=== PATIENT | female | born 1950 | race Caucasian/White ===

== ENCOUNTER → 2018-02-02 | Outpatient (CLI) | payer MEDICARE ==
[2018-02-02 09:07] LABS: ABSOLUTE EOSINOPHILS # (AUTO) 0.2 10^3/uL (0.0-0.6); ABSOLUTE LYMPHOCYTES (AUTO) 1.5 10^3/uL (0.5-4.7); ABSOLUTE MONOCYTES (AUTO) 0.4 10^3/uL (0.1-1.4); ABSOLUTE NEUT (AUTO) 2.1 10^3/uL (1.7-8.2); BASOPHILS % (AUTO) 1.1 % (0-2); EOSINOPHILS % (AUTO) 5.2 % (0-6); HEMATOCRIT 40.1 % (36.0-47.0); HEMOGLOBIN 13.6 g/dL (12.0-15.5); LYMPHOCYTES % (AUTO) 35.2 % (13-45); MEAN CORPUSCULAR HEMOGLOBIN 32.2 pg (27.0-33.4); MEAN CORPUSCULAR HGB CONC 33.9 g/dL (32.0-36.0); MEAN CORPUSCULAR VOLUME 95 fl (80-97); PLATELET COUNT 255 10^3/uL (150-450); RED BLOOD COUNT 4.21 10^6/uL (3.72-5.28); RED CELL DISTRIBUTION WIDTH 13.2 % (11.5-14.0); SEGMENTED NEUTROPHILS % (AUTO) 49.5 % (42-78); TOTAL CELLS COUNTED % (AUTO) 100 %; WHITE BLOOD COUNT 4.3 10^3/uL (4.0-10.5)
[2018-02-02 09:30] LABS: ALANINE AMINOTRANSFERASE 31 U/L (9-52); ALBUMIN 4.2 g/dL (3.5-5.0); ALKALINE PHOSPHATASE 63 U/L (38-126); ANION GAP 10 (5-19); ASPARTATE AMINO TRANSFERASE 29 U/L (14-36); BILIRUBIN,DIRECT 0.3 mg/dL (0.0-0.4); BILIRUBIN,TOTAL 0.4 mg/dL (0.2-1.3); BLOOD UREA NITROGEN 18 mg/dL (7-20); CALCIUM 9.7 mg/dL (8.4-10.2); CARBON DIOXIDE 30 mmol/L (22-30); CHLORIDE 107 mmol/L (98-107); CHOLESTEROL 193.16 mg/dL (0-200); GLUCOSE 110 mg/dL (75-110); POTASSIUM 5.1 mmol/L (3.6-5.0); SODIUM 146.9 mmol/L (137-145); TOTAL PROTEIN 7.4 g/dL (6.3-8.2); TRIGLYCERIDES 125 mg/dL (<150)
[2018-02-02 09:46] LABS: DIRECT LDL 97 mg/dL (<100)
== END ==
LOC: OD 07:20
PROVIDERS: ATTEND Physician Assistant
DX: E78.5 Hyperlipidemia, unspecified (principal); R73.01 Impaired fasting glucose; I10 Essential (primary) hypertension; E87.5 Hyperkalemia
CPT/HCPCS: 36415; 80053; 80061; 83036; 85025

== ENCOUNTER 2018-10-04 18:09 | Inpatient (IN) | payer MEDICARE ==
--- NOTE | 2018-10-04 18:25 | ER Document Report ---
ED Medical Screen (RME) - General Stated Complaint: ABDOMINAL PAIN Time Seen by Provider: 10/04/18 18:25 Notes: Patient presents emergency department complaints of severe abdominal pain. Patient reports pain started after lunch. She reports she ate broccoli and grilled pork chops. Reports pain and vomiting started approximately half an hour after that. She reports other people ate the same meal and they are not sick. She reports she thought maybe she needed to have a bowel movement because she has a history of constipation. She tried 2 glycerin suppositories and had small amount results. I have greeted and performed a rapid initial assessment of this patient. A comprehensive ED assessment and evaluation of the patient, analysis of test results and completion of the medical decision making process will be conducted by additional ED providers. TRAVEL OUTSIDE OF THE [place] IN LAST 30 DAYS: No Doctor's Discharge - Discharge Referrals: CRYS AVILES PA [Primary Care Provider] - Follow up as needed
[2018-10-04] MEDS ORDERED: KETOROLAC TROMETHAMINE INJ/PF 30 MG/1 ML SDV IV ONE (18:31)
[2018-10-04] MEDS ORDERED: PANTOPRAZOLE SODIUM 40 MG VIAL IV ONE (18:51)
[2018-10-04 19:26] LABS: BLOOD UREA NITROGEN 14 mg/dL (7-20); CALCIUM 8.8 mg/dL (8.4-10.2); CARBON DIOXIDE 24 mmol/L (22-30); CHLORIDE 111 mmol/L (98-107); GLUCOSE 123 mg/dL (75-110); POTASSIUM 4.3 mmol/L (3.6-5.0); SODIUM 143.4 mmol/L (137-145)
[2018-10-04 19:27] LABS: ALANINE AMINOTRANSFERASE 52 U/L (9-52); ALKALINE PHOSPHATASE 94 U/L (38-126); ANION GAP 8 (5-19); ASPARTATE AMINO TRANSFERASE 107 U/L (14-36); BILIRUBIN,DIRECT 0.4 mg/dL (0.0-0.4); BILIRUBIN,TOTAL 0.7 mg/dL (0.2-1.3); TOTAL PROTEIN 6.8 g/dL (6.3-8.2)
[2018-10-04 19:45] LABS: ABSOLUTE LYMPHOCYTES (AUTO) 0.8 10^3/uL (0.5-4.7); ABSOLUTE MONOCYTES (AUTO) 0.6 10^3/uL (0.1-1.4); ABSOLUTE NEUT (AUTO) 8.6 10^3/uL (1.7-8.2); BASOPHILS % (AUTO) 0.2 % (0-2); EOSINOPHILS % (AUTO) 0.3 % (0-6); HEMATOCRIT 40.8 % (36.0-47.0); HEMOGLOBIN 13.8 g/dL (12.0-15.5); MEAN CORPUSCULAR HEMOGLOBIN 32.4 pg (27.0-33.4); MEAN CORPUSCULAR HGB CONC 33.9 g/dL (32.0-36.0); MEAN CORPUSCULAR VOLUME 95 fl (80-97); PLATELET COUNT 250 10^3/uL (150-450); RED BLOOD COUNT 4.28 10^6/uL (3.72-5.28); RED CELL DISTRIBUTION WIDTH 13.1 % (11.5-14.0); SEGMENTED NEUTROPHILS % (AUTO) 85.5 % (42-78); TOTAL CELLS COUNTED % (AUTO) 100 %; WHITE BLOOD COUNT 10.1 10^3/uL (4.0-10.5)
[2018-10-04 19:47] LABS: LIPASE 17704.5 U/L (23-300)
--- NOTE | 2018-10-04 19:54 | ER Document Report ---
ED General - General Mode of Arrival: Ambulatory Information source: Patient TRAVEL OUTSIDE OF THE [place] IN LAST 30 DAYS: No <NATA COONEY - Last Filed: 10/04/18 23:37> <CRYS OLSON - Last Filed: 10/05/18 01:41> - General Chief Complaint: Abdominal Pain Stated Complaint: ABDOMINAL PAIN Time Seen by Provider: 10/04/18 18:25 Notes: Patient is a 68 year old female presenting to the emergency department complaining of abdominal pain, nausea and vomiting onset around 1500 today. Patient states the pain is located diffusely and describes it as intermittent and painful. Patient states she has not had similar pain. She also complains of right shoulder pain onset today. Patient denies diarrhea, recent surgeries, fev ers, dysuria, or back pain. (NATA COONEY) - Related Data Allergies/Adverse Reactions: No Known Allergies Allergy (Unverified 10/04/18 19:11) Past Medical History - General Information source: Patient - Social History Smoking Status: Never Smoker Chew tobacco use (# tins/day): No Frequency of alcohol use: Occasional Drug Abuse: None Patient has suicidal ideation: No Patient has homicidal ideation: No Past Surgical History: Reports: Hx Lumpectomy <NATA COONEY - Last Filed: 10/04/18 23:37> - Social History Family History: Reviewed & Not Pertinent <CRYS OLSON - Last Filed: 10/05/18 01:41> Review of Systems - Review of Systems Constitutional: No symptoms reported EENT: No symptoms reported Cardiovascular: No symptoms reported Respiratory: No symptoms reported Gastrointestinal: See HPI, Abdominal pain, Nausea, Vomiting Genitourinary: No symptoms reported Female Genitourinary: No symptoms reported Skin: No symptoms reported Hematologic/Lymphatic: No symptoms reported Neurological/Psychological: No symptoms reported -: Yes All other systems reviewed and negative <NATA COONEY - Last Filed: 10/04/18 23:37> Physical Exam <NATA COONEY - Last Filed: 10/04/18 23:37> - Vital signs Vitals: Temp Pulse Resp BP Pulse Ox 98.0 F 78 14 132/72 H 95 10/04/18 19:55 10/04/18 19:55 10/04/18 19:55 10/04/18 19:55 10/04/18 19:55 - Notes Notes: GENERAL: Alert, interacts well. No acute distress. HEAD: Normocephalic, atraumatic. EYES: Pupils equal, round, and reactive to light. Extraocular movements intact. ENT: Oral mucosa dry, tongue midline. NECK: Full range of motion. Supple. Trachea midline. LUNGS: Appears short of breath. Clear to auscultation bilaterally, no wheezes, rales, or rhonchi. No respiratory distress. HEART: Regular rate and rhythm. No murmurs, gallops, or rubs. ABDOMEN: Soft, epigastric and periumblical tenderness to palpation. Non- distended. Bowel sounds present in all 4 quadrants. EXTREMITIES: Moves all 4 extremities spontaneously. NEUROLOGICAL: Alert and oriented x3. Normal speech. PSYCH: Normal affect, normal mood. SKIN: Warm, dry, normal turgor. No rashes or lesions noted. (NATA COONEY) Course - Laboratory Result Diagrams: 10/04/18 19:30 10/04/18 19:00 <NATA COONEY - Last Filed: 10/04/18 23:37> - Laboratory Result Diagrams: 10/04/18 19:30 10/04/18 19:00 - Diagnostic Test Radiology reviewed: Reports reviewed <CRYS OLSON - Last Filed: 10/05/18 01:41> - Re-evaluation Re-evalutation: 10/04/18 20:09 Patient rechecked. Has been updated with results. 10/04/18 21:07 Patient rechecked. Informed patient of results and discussed plans for admission. Patient understands and is agreeable. (NATA COONYE) Patient is a 68-year-old female who comes in with abdominal pain. Lipase is 17,000. Pancreatitis on CT. Patient denies drinking alcohol heavily. No evidence for gallstones. Discussed with the hospitalist service. Patient will be fluid resuscitated, given pain and nausea medication, and kept n.p.o. Will be admitted. Stable at the time of admission. Patient and family understand and agree with plan. (CRYS OLSON) - Vital Signs Vital signs: Temp Pulse Resp BP Pulse Ox 98.3 F 87 22 H 134/68 H 92 10/05/18 00:19 10/05/18 00:19 10/05/18 00:19 10/05/18 00:19 10/05/18 00:19 - Laboratory Laboratory results interpreted by me: 10/04/18 10/04/18 10/04/18 18:40 19:00 19:30 Seg Neutrophils % 85.5 H Lymphocytes % 8.0 L Absolute Neutrophils 8.6 H Chloride 111 H Glucose 123 H AST 107 H Lipase 15332.5 H Urine Ketones TRACE H Urine Blood SMALL H Discharge <NATA COONEY - Last Filed: 10/04/18 23:37> - Discharge Admitting Provider: [facility] Admitted: Medical Floor <CRYS OLSON - Last Filed: 10/05/18 01:41> - Discharge Clinical Impression: Pancreatitis Qualifiers: Chronicity: acute Pancreatitis type: unspecified pancreatitis type Acute pancreatitis complication: no infection or necrosis Qualified Code(s): K85.90 - Acute pancreatitis without necrosis or infection, unspecified Condition: Stable Disposition: ADMITTED INPATIENT Scribe Attestation: 10/05/18 01:41 I personally performed the services described in the documentation, reviewed and edited the documentation which was dictated to the scribe in my presence, and it accurately records my words and actions. (CRYS OLSON) Scribe Documentation - Scribe Written by Scribe:: Enid Avendano, 10/04/2017 23:38 acting as scribe for :: Gianna <NATA COONEY - Last Filed: 10/04/18 23:37>
[2018-10-04] MEDS ORDERED: FENTANYL CITRATE INJ/PF 100 MCG/2 ML AMPUL IV ONE ×2 (20:10→20:56)
[2018-10-04] MEDS ORDERED: ONDANSETRON HCL INJ/PF 4 MG/2 ML SDV IV ONE (20:10)
[2018-10-04 20:24] LABS: APPEARANCE,URINE CLEAR; BILIRUBIN,URINE NEGATIVE (NEGATIVE); COLOR,URINE YELLOW; GLUCOSE, URINE NEGATIVE (NEGATIVE); KETONES,URINE TRACE mg/dL (NEGATIVE); LEUKOCYTE ESTERASE,URINE NEGATIVE (NEGATIVE); NITRITE,URINE NEGATIVE (NEGATIVE); PROTEIN,URINE NEGATIVE (NEGATIVE); URINE SPECIFIC GRAVITY 1.016; UROBILINOGEN,URINE NEGATIVE mg/dL (<2.0)
--- NOTE | 2018-10-04 20:39 | RADIOLOGY REPORT (SQ) ---
EXAM DESCRIPTION: CT ABD/PELVIS WITH IV ONLY COMPLETED DATE/TIME: 10/04/2018 8:27 pm REASON FOR STUDY: Evaluate for pancreatitis COMPARISON: None. TECHNIQUE: CT scan of the abdomen and pelvis performed using helical scanning technique with dynamic intravenous contrast injection. No oral contrast. Images reviewed with lung, soft tissue, and bone windows. Reconstructed coronal and sagittal MPR images reviewed. Delayed images for evaluation of the urinary system also acquired. All images stored on PACS. All CT scanners at this facility use dose modulation, iterative reconstruction, and/or weight based d osing when appropriate to reduce radiation dose to as low as reasonably achievable (ALARA). [facility]: Dose Right [facility]: CareDose [facility]: Dose Right [facility]: Teradose 4D [facility]: GlucoVista CONTRAST TYPE AND DOSE: contrast/concentration: Isovue 350.00 mg/ml; Total Contrast Delivered: 88.0 ml; Total Saline Delivered: 53.0 ml RENAL FUNCTION: BUN 14 creatinine 0.63 RADIATION DOSE: CT Rad equipment meets quality standard of care and radiation dose reduction techniq ues were employed. CTDIvol: 11.4 - 14.6 mGy. DLP: 1379 mGy-cm.. LIMITATIONS: None. FINDINGS: LOWER CHEST: No significant findings. No nodules or infiltrates. LIVER: Normal size. No masses. No dilated ducts. SPLEEN: Normal size. No focal lesions. PANCREAS: Peripancreatic edema. A small amount of peripancreatic fluid. Fluid is seen along the ant erior renal fascia on the left extending to the left colic gutter. GALLBLADDER: No identified stones by CT criteria. No inflammatory changes to suggest cholecystitis. ADRENAL GLANDS: No significant masses or asymmetry. RIGHT KIDNEY AND URETER: No solid masses. No significant calcifications. No hydronephrosis or hyd roureter. LEFT KIDNEY AND URETER: No solid masses. No significant calcifications. No hydronephrosis or hydr oureter. AORTA AND VESSELS: No aneurysm. No dissection. Renal arteries, SMA, celiac without stenosis. RETROPERITONEUM: No retroperitoneal adenopathy, hemorrhage or masses. BOWEL AND PERITONEAL CAVITY: No masses or inflammatory changes. No free fluid or peritoneal masses. APPENDIX: Not identified. PELVIS: No mass. No free fluid. Normal bladder. ABDOMINAL WALL: No masses. No hernias. BONES: No significant or acute findings. OTHER: No other significant finding. IMPRESSION: Acute pancreatitis. Peripancreatic fluid as described. TECHNICAL DOCUMENTATION: JOB ID: [id number] Quality ID # [id number]: Final reports with documentation of one or more dose reduction techniques (e.g., Au tomated exposure control, adjustment of the mA and/or kV according to patient size, use of iterative reconstruction technique) 2010 [employer]- All Rights Reserved Reading location - IP/workstation name: [email or web address]
[2018-10-04] MEDS ORDERED: NORMAL SALINE 1000 ML 1,000 ML IV ONE (20:57)
[2018-10-04] MEDS ORDERED: ONDANSETRON HCL INJ/PF 4 MG/2 ML SDV IV PRN (21:15)
[2018-10-04] MEDS ORDERED: MAGNESIUM HYDROXIDE SUSP 30 ML UDCUP PO PRN (21:15)
[2018-10-04] MEDS ORDERED: ONDANSETRON 4 MG TAB.RAPDIS PO PRN (21:15)
[2018-10-04] MEDS ORDERED: MAG HYDROX/AL HYDROX/SIMETH SUSP 30 ML UDCUP PO PRN (21:15)
[2018-10-04] MEDS ORDERED: LABETALOL HCL INJ 20 MG/4 ML DISP.SYRIN IV PRN (21:21)
[2018-10-04] MEDS ORDERED: ACETAMINOPHEN 650 MG SUPP.RECT PR PRN (21:21)
[2018-10-04] MEDS ORDERED: MORPHINE SULFATE 10 MG/ML INJ IV PRN ×2 (21:21)
[2018-10-04] MEDS ORDERED: HYDRALAZINE HCL INJ/PF 20 MG/1 ML SDV IV PRN (21:21)
[2018-10-04] MEDS ORDERED: NICOTINE 21 MG/24 HR PATCH.TD24 TD PRN (21:21)
[2018-10-04] MEDS ORDERED: GLUCAGON,HUMAN RECOMB 1 MG INJ IM PRN (21:26)
[2018-10-04] MEDS ORDERED: DEXTROSE 40% GEL 15 GM TUBE PO PRN ×2 (21:26)
[2018-10-04] MEDS ORDERED: DEXTROSE 50%-WATER 25 GM/50 ML DISP.SYRIN IV PRN ×2 (21:26)
[2018-10-04] MEDS ORDERED: INSULIN REG, HUMAN 100 UNIT/ML 3 ML VIAL (PYX) SUBCUT PRN (21:26)
[2018-10-04] MEDS: RINGERS SOLUTION,LACTATED 1,000 ML IV PRN (22:16)
[2018-10-04] MEDS: FAMOTIDINE 20 MG TABLET PO SCH (22:18)
[2018-10-04] MEDS: METOCLOPRAMIDE HCL 10 MG TABLET PO SCH (22:22)
[2018-10-04] MEDS: SUCRALFATE SUSP 1 GM/10 ML UDCUP PO SCH (22:24)
[2018-10-04] MEDS: HEPARIN SOD (PORCINE) 5,000 UNIT/ML 1 ML SYRINGE SUBCUT SCH (22:24)
[2018-10-05] MEDS: MORPHINE SULFATE 10 MG/ML INJ IV PRN ×9 (00:20→22:06)
[2018-10-05 02:26] LABS: URINE AMPHETAMINES SCREEN NEGATIVE; URINE BARBITURATES SCREEN NEGATIVE; URINE BENZODIAZEPINES SCREEN NEGATIVE; URINE COCAINE SCREEN NEGATIVE; URINE MARIJUANA (THC) SCREEN NEGATIVE; URINE METHADONE SCREEN NEGATIVE; URINE PHENCYCLIDINE SCREEN NEGATIVE
[2018-10-05] MEDS: RINGERS SOLUTION,LACTATED 1,000 ML IV PRN ×2 (04:22→08:46)
[2018-10-05] MEDS: HEPARIN SOD (PORCINE) 5,000 UNIT/ML 1 ML SYRINGE SUBCUT SCH ×3 (05:16→22:06)
--- NOTE | 2018-10-05 05:40 | PDOC H&P ---
History of Present Illness Admission Date/PCP: LETHA DE LOS SANTOS MD Patient complains of: Abdominal pain History of Present Illness: JAJA JOYA is a 68 year old female who presented to the emergency room with acute onset abdominal pain. She admits that at approximately 3 PM (1-2 hours after her last meal of grilled pork chops with broccoli). On the day of a dmission she developed epigastric area abdominal pain which has been waxing and waning but present since onset and attaining minimal levels at its lows and severe levels at its highs with the more severe pain lasting for longer periods (more than an hour) at the time of admission. The pain is of a deep cramping/colicky nature and radiates to the right shoulder area. She tried using glycerin suppositories at home thinking she might just be constipated but though she had small bowel movements after using the suppositories she had no relief of her pain. She has not identified any aggravating or ameliorating factors for her pain and she denies prior similar episodes. In the emergency room she was found to have a serum lipase in excess of 17,[address] scan which confirmed acute edema of the pancreas with some minimal peripancreatic fluid. All evidence suggests acute pancreatitis and the patient is therefore being admitted for further evaluation and treatment. She will be started on early feeding with full liquids and will receive the oral therapeutic protocol utilizing an H2 katelyn, a motility agent and a surface active antacid in addition to pancreatic enzyme replacement. Diet should be advanced to a cardiac diet as soon as the patient is able to tolerate full liquids well. Past Medical History Cardiac Medical History: Reports: Hyperlipidema, Hypertension Denies: Coronary Artery Disease Pulmonary Medical History: Denies: Asthma, Chronic Obstructive Pulmonary Disease (COPD), Respiratory Failure EENT Medical History: Reports: None Neurological Medical History: Denies: Hemorrhagic CVA, Ischemic CVA, Multiple Sclerosis, Seizures Endocrine Medical History: Denies: Diabetes Mellitus Type 1, Diabetes Mellitus Type 2, Hyperthyroidism, Hypothyroidism Renal/ Medical History: Denies: Chronic Kidney Disease, Nephrolithiasis Malignancy Medical History: Reports: None GI Medical History: Denies: Cirrhosis, Crohn's Disease, Diverticulitis, Gastroesophageal Reflux Disease, Hepatitis, Peptic Ulcer Disease, Ulcerative Colitis Musculoskeltal Medical History: Denies: Arthritis, Gout Skin Medical History: Denies: Eczema, Psoriasis Psychiatric Medical History: Denies: Alcohol Dependency, Dementia, Depression, Substance Abuse, Tobacco Dependency Traumatic Medical History: Reports: None Hematology: Denies: Anemia, Bleeding Tendencies Infectious Medical History: Reports: None Past Surgical History Past Surgical History: Reports: Other - Breast lumpectomy Social History Information Source: Patient Lives with: Family Smoking Status: Never Smoker Frequency of Alcohol Use: Occasional Hx Recreational Drug Use: No Drugs: None Hx Prescription Drug Abuse: No - Advance Directive Resuscitation Status: Full Code Surrogate healthcare decision maker:: Anita Joya Family History Family History: Hypertension Parental Family History Reviewed: Yes Children Family History Reviewed: No Sibling(s) Family History Reviewed.: Yes Medication/Allergy Home Medications: Amlodipine Besylate [Norvasc 5 mg Tablet] 5 mg PO DAILY 10/04/18 Cyclobenzaprine HCl [Flexeril 5 mg Tablet] 5 mg PO HSP PRN 10/04/18 Lovastatin [Mevacor] 10 mg PO DAILY 10/04/18 Zolpidem Tartrate [Ambien 5 mg Tablet] 5 mg PO HSP PRN 10/04/18 Allergies/Adverse Reactions: No Known Allergies Allergy (Unverified 10/04/18 19:11) Review of Systems Constitutional: ABSENT: chills, fever(s) Eyes: ABSENT: visual disturbances, other - Ocular pain Ears: ABSENT: hearing changes, other - Ear pain Nose, Mouth, and Throat: ABSENT: mouth pain, sore throat Cardiovascular: ABSENT: chest pain, dyspnea on exertion, edema, orthropnea, palpitations Respiratory: ABSENT: cough, dyspnea Gastrointestinal: PRESENT: as per HPI, abdominal pain. ABSENT: constipation, diarrhea, nausea, vomiting Genitourinary: ABSENT: dysuria, hematuria Musculoskeletal: PRESENT: other - Right shoulder pain developed today and associated with pain of chief complaint. ABSENT: deformity, joint swelling Integumentary: ABSENT: lesions, pruritus, rash Neurological: ABSENT: confusion, convulsions, memory loss, tremor(s) Psychiatric: ABSENT: anxiety, depression Endocrine: ABSENT: cold intolerance, heat intolerance Hematologic/Lymphatic: ABSENT: easy bleeding, easy bruising Physical Exam Vital Signs: Temp Pulse Resp BP Pulse Ox 98.0 F 78 14 132/72 H 95 10/04/18 19:55 10/04/18 19:55 10/04/18 19:55 10/04/18 19:55 10/04/18 19:55 Intake & Output 10/02/18 10/03/18 10/04/18 23:59 23:59 23:59 Weight 77.111 kg General appearance: PRESENT: no acute distress, cooperative, well-developed, well-nourished Head exam: PRESENT: atraumatic, normocephalic Eye exam: PRESENT: conjunctiva pink, EOMI. ABSENT: scleral icterus Ear exam: PRESENT: normal external ear exam. ABSENT: bleeding, drainage Mouth exam: PRESENT: dry mucosa, neck supple Neck exam: ABSENT: JVD, thyromegaly, tracheal deviation Respiratory exam: PRESENT: clear to auscultation rohini, symmetrical, unlabored Cardiovascular exam: PRESENT: RRR. ABSENT: clicks, gallop, rubs Pulses: PRESENT: normal radial pulses, normal dorsalis pedis pul Vascular exam: PRESENT: normal capillary refill. ABSENT: pallor GI/Abdominal exam: PRESENT: normal bowel sounds, soft, tenderness - Epigastric tenderness to palpation without rebound tenderness.. ABSENT: rebound Rectal exam: ABSENT: deferred Extremities exam: ABSENT: joint swelling, pedal edema, tenderness Musculoskeletal exam: PRESENT: full ROM, normal inspection Neurological exam: PRESENT: alert, oriented to person, oriented to place, oriented to time, oriented to situation, CN II-XII grossly intact. ABSENT: motor sensory deficit Psychiatric exam: PRESENT: appropriate affect, normal mood Skin exam: PRESENT: dry, intact, warm. ABSENT: jaundice, rash, urticaria Results Laboratory Results: 10/04/18 19:30 10/04/18 19:00 10/04/18 10/04/18 10/04/18 18:40 19:00 19:30 WBC 10.1 RBC 4.28 Hgb 13.8 Hct 40.8 MCV 95 MCH 32.4 MCHC 33.9 RDW 13.1 Plt Count 250 Seg Neutrophils % 85.5 H Lymphocytes % 8.0 L Monocytes % 6.0 Eosinophils % 0.3 Basophils % 0.2 Absolute Neutrophils 8.6 H Absolute Lymphocytes 0.8 Absolute Monocytes 0.6 Absolute Eosinophils 0.0 Absolute Basophils 0.0 Sodium 143.4 Potassium 4.3 Chloride 111 H Carbon Dioxide 24 Anion Gap 8 BUN 14 Creatinine 0.63 Est GFR ( Amer) > 60 Est GFR (Non-Af Amer) > 60 Glucose 123 H Calcium 8.8 Total Bilirubin 0.7 AST 107 H ALT 52 Alkaline Phosphatase 94 Total Protein 6.8 Albumin 4.0 Lipase 82319.5 H Urine Color YELLOW Urine Appearance CLEAR Urine pH 5.0 Ur Specific [place] 1.016 Urine Protein NEGATIVE Urine Glucose (UA) NEGATIVE Urine Ketones TRACE H Urine Blood SMALL H Urine Nitrite NEGATIVE Ur Leukocyte Esterase NEGATIVE Urine WBC (Auto) 1 Urine RBC (Auto) 3 Impressions: Abdomen/Pelvis CT 10/04/18 19:56 IMPRESSION: Acute pancreatitis. Peripancreatic fluid as described. Assessment & Plan - Diagnosis (1) Acute pancreatitis Qualifiers: Pancreatitis type: unspecified pancreatitis type Acute pancreatitis complication: unspecified Qualified Code(s): K85.90 - Acute pancreatitis without necrosis or infection, unspecified Is this a current diagnosis for this admission?: Yes Plan: Patient be treated with IV fluids utilizing Ringer's lactate at 250 mL/h. Additionally her pain will be controlled utilizing sliding scale morphine 2-4 mg IV every 2 hours as needed. Nausea will be controlled with Zofran 4 mg IV or sublingual every 4 hours as needed. She will be started on an early feeding pancreatitis therapy plan using a full liquid low-fat diet which if tolerated can be increased to a cardiac diet as soon as possible. She will receive famotidine 10 mg p.o. before meals and at bedtime, Reglan 10 mg p.o. before meals and at bedtime, sucralfate 1 g solution p.o. before meals and at bedtime and she will also receive pancreatic enzyme replacement (Pancreaze 10) 1 p.o. with meals. Daily evaluations of her lipase and amylase will be obtained as well as evaluations of her CBC and metabolic profile. (2) HLD (hyperlipidemia) Qualifiers: Hyperlipidemia type: unspecified Qualified Code(s): E78.5 - Hyperlipidemia, unspecified Is this a current diagnosis for this admission?: Yes Plan: Patient's hyperlipidemia therapy will be restarted once she is able to tolerate oral feedings well. A lipid profile will be obtained to ascertain the efficacy of her current therapy. (3) HTN (hypertension) Qualifiers: Hypertension type: essential hypertension Qualified Code(s): I10 - Essential (primary) hypertension Is this a current diagnosis for this admission?: Yes Plan: Patient's antihypertensive medication will be continued during her hospital course and supplemented an as-needed basis. Changes will be made to her therapy only as medically indicated. (4) Venous thromboembolism (VTE) prophylaxis provided within 24 hours of arrival Is this a current diagnosis for this admission?: Yes Plan: Patient will be placed on DVT prophylaxis utilizing YANA hose and subcutaneous heparin therapy. - Time Time Spent: 30 to 50 Minutes Critical Time spent with patient: Less than 15 minutes Medications reviewed and adjusted accordingly: Yes Anticipated discharge: Home - Inpatient Certification Based on my medical assessment, after consideration of the patient's comorbidities, presenting symptoms, or acuity I expect that the services needed warrant INPATIENT care.: Yes I certify that my determination is in accordance with my understanding of Medicare's requirements for reasonable and necessary INPATIENT services [42 CFR 412.3e].: Yes Medical Necessity: Need Close Monitoring Due to Risk of Patient Decompensation, Need For IV Fluids, Need for Pain Control, Risk of Complication if Not Cared For in Hospital
[2018-10-05 06:41] LABS: ABSOLUTE LYMPHOCYTES (AUTO) 1.2 10^3/uL (0.5-4.7); ABSOLUTE MONOCYTES (AUTO) 0.9 10^3/uL (0.1-1.4); ABSOLUTE NEUT (AUTO) 12.3 10^3/uL (1.7-8.2); BASOPHILS % (AUTO) 0.1 % (0-2); HEMOGLOBIN 12.4 g/dL (12.0-15.5); LYMPHOCYTES % (AUTO) 8.6 % (13-45); MEAN CORPUSCULAR HEMOGLOBIN 32.1 pg (27.0-33.4); MEAN CORPUSCULAR HGB CONC 33.6 g/dL (32.0-36.0); MEAN CORPUSCULAR VOLUME 96 fl (80-97); MONOCYTES % (AUTO) 6.5 % (3-13); PLATELET COUNT 199 10^3/uL (150-450); RED BLOOD COUNT 3.87 10^6/uL (3.72-5.28); RED CELL DISTRIBUTION WIDTH 13.3 % (11.5-14.0); SEGMENTED NEUTROPHILS % (AUTO) 84.8 % (42-78); TOTAL CELLS COUNTED % (AUTO) 100 %; WHITE BLOOD COUNT 14.5 10^3/uL (4.0-10.5)
[2018-10-05 07:02] LABS: ANION GAP 6 (5-19); BLOOD UREA NITROGEN 13 mg/dL (7-20); CALCIUM 8.8 mg/dL (8.4-10.2); CARBON DIOXIDE 25 mmol/L (22-30); CHLORIDE 108 mmol/L (98-107); CHOLESTEROL 159.06 mg/dL (0-200); GLUCOSE 102 mg/dL (75-110); SODIUM 139.4 mmol/L (137-145); TRIGLYCERIDES 52 mg/dL (<150)
[2018-10-05 07:13] LABS: DIRECT LDL 73 mg/dL (<100)
[2018-10-05 07:30] LABS: AMYLASE 1399 U/L (30-110)
[2018-10-05 07:39] LABS: LIPASE 8386.6 U/L (23-300)
[2018-10-05 08:26] LABS: FREE T3 2.93 pg/mL (2.77-5.27); FREE T4 (FREE THYROXINE) 1.07 ng/dL (0.78-2.19)
[2018-10-05] MEDS: ACETAMINOPHEN 325 MG TABLET PO PRN (08:35)
[2018-10-05] MEDS: SUCRALFATE SUSP 1 GM/10 ML UDCUP PO SCH ×4 (08:36→22:06)
[2018-10-05] MEDS: FAMOTIDINE 20 MG TABLET PO SCH ×4 (08:36→22:07)
[2018-10-05] MEDS: METOCLOPRAMIDE HCL 10 MG TABLET PO SCH ×4 (08:36→22:07)
[2018-10-05] MEDS: LIPASE/PROTEASE/AMYLASE 1 CAP CAPSULE.DR PO SCH ×3 (08:36→17:19)
[2018-10-05 08:39] LABS: THYROID STIMULATING HORMONE 2.42 uIU/mL (0.47-4.68)
--- NOTE | 2018-10-05 09:35 | PDOC PROGRESS REPORT ---
Subjective Progress Note for:: 10/05/18 Subjective:: Patient was admitted yesterday by the hospitalist service with abdominal pain with acute pancreatitis Patient's CT scan of the abdomen and pelvis consistent with the pancreatitis but no gallstones Patient's bilirubin is all stable still no sign of any biliary obstructions Patient is denied any history of any alcoholism except during the holidays patient was drinking some alcohol The patient had a history of the high cholesterol but current cholesterol level is all stable Patient is denied any chest pain denied any shortness of the breath Reason For Visit: ACUTE PANCREATITIS Physical Exam Vital Signs: Temp Pulse Resp BP Pulse Ox 98.3 F 80 20 133/62 H 95 10/05/18 08:04 10/05/18 08:04 10/05/18 08:04 10/05/18 08:04 10/05/18 08:04 Intake & Output 10/04/18 10/05/18 10/06/18 06:59 06:59 06:59 Intake Total 1999 1000 Balance 1999 1000 Weight 79.3 kg General appearance: PRESENT: no acute distress, well-developed, well-nourished Head exam: PRESENT: atraumatic, normocephalic Eye exam: PRESENT: conjunctiva pink, EOMI, PERRLA. ABSENT: scleral icterus Ear exam: PRESENT: normal external ear exam Mouth exam: PRESENT: moist, tongue midline Neck exam: PRESENT: full ROM. ABSENT: carotid bruit, JVD, lymphadenopathy, thyromegaly Respiratory exam: PRESENT: clear to auscultation rohini Cardiovascular exam: PRESENT: RRR. ABSENT: diastolic murmur, rubs, systolic murmur Pulses: PRESENT: normal dorsalis pedis pul, +2 pedal pulses bilateral Vascular exam: PRESENT: normal capillary refill GI/Abdominal exam: PRESENT: normal bowel sounds, soft, tenderness. ABSENT: distended, guarding, mass, organolmegaly, rebound Rectal exam: PRESENT: deferred Neurological exam: PRESENT: alert, awake, oriented to person, oriented to place, oriented to time, oriented to situation, CN II-XII grossly intact. ABSENT: motor sensory deficit Psychiatric exam: PRESENT: appropriate affect, normal mood. ABSENT: homicidal ideation, suicidal ideation Skin exam: PRESENT: dry, intact, warm. ABSENT: cyanosis, rash Results Laboratory Results: 10/05/18 05:27 10/05/18 05:27 10/04/18 10/04/18 10/04/18 18:40 19:00 19:30 WBC 10.1 RBC 4.28 Hgb 13.8 Hct 40.8 MCV 95 MCH 32.4 MCHC 33.9 RDW 13.1 Plt Count 250 Seg Neutrophils % 85.5 H Lymphocytes % 8.0 L Monocytes % 6.0 Eosinophils % 0.3 Basophils % 0.2 Absolute Neutrophils 8.6 H Absolute Lymphocytes 0.8 Absolute Monocytes 0.6 Absolute Eosinophils 0.0 Absolute Basophils 0.0 Sodium 143.4 Potassium 4.3 Chloride 111 H Carbon Dioxide 24 Anion Gap 8 BUN 14 Creatinine 0.63 Est GFR ( Amer) > 60 Est GFR (Non-Af Amer) > 60 Glucose 123 H Calcium 8.8 Magnesium Total Bilirubin 0.7 AST 107 H ALT 52 Alkaline Phosphatase 94 Total Protein 6.8 Albumin 4.0 Triglycerides Cholesterol LDL Cholesterol Direct VLDL Cholesterol HDL Cholesterol Amylase Lipase 89486.5 H TSH Free T4 Free T3 pg/mL Urine Color YELLOW Urine Appearance CLEAR Urine pH 5.0 Ur Specific [place] 1.016 Urine Protein NEGATIVE Urine Glucose (UA) NEGATIVE Urine Ketones TRACE H Urine Blood SMALL H Urine Nitrite NEGATIVE Ur Leukocyte Esterase NEGATIVE Urine WBC (Auto) 1 Urine RBC (Auto) 3 10/05/18 10/05/18 10/05/18 05:27 05:27 05:27 WBC 14.5 H RBC 3.87 Hgb 12.4 Hct 37.0 MCV 96 MCH 32.1 MCHC 33.6 RDW 13.3 Plt Count 199 Seg Neutrophils % 84.8 H Lymphocytes % 8.6 L Monocytes % 6.5 Eosinophils % 0.0 Basophils % 0.1 Absolute Neutrophils 12.3 H Absolute Lymphocytes 1.2 Absolute Monocytes 0.9 Absolute Eosinophils 0.0 Absolute Basophils 0.0 Sodium 139.4 Potassium 4.0 Chloride 108 H Carbon Dioxide 25 Anion Gap 6 BUN 13 Creatinine 0.68 Est GFR ( Amer) > 60 Est GFR (Non-Af Amer) > 60 Glucose 102 Calcium 8.8 Magnesium 1.9 Total Bilirubin AST ALT Alkaline Phosphatase Total Protein Albumin Triglycerides 52 Cholesterol 159.06 LDL Cholesterol Direct 73 VLDL Cholesterol 10.0 HDL Cholesterol 68 Amylase 1399 H Lipase 8386.6 H TSH 2.42 Free T4 1.07 Free T3 pg/mL 2.93 Urine Color Urine Appearance Urine pH Ur Specific [place] Urine Protein Urine Glucose (UA) Urine Ketones Urine Blood Urine Nitrite Ur Leukocyte Esterase Urine WBC (Auto) Urine RBC (Auto) Impressions: Abdomen/Pelvis CT 10/04/18 19:56 IMPRESSION: Acute pancreatitis. Peripancreatic fluid as described. Assessment & Plan - Diagnosis (1) Acute pancreatitis Qualifiers: Pancreatitis type: unspecified pancreatitis type Acute pancreatitis complication: unspecified Qualified Code(s): K85.90 - Acute pancreatitis without necrosis or infection, unspecified Is this a current diagnosis for this admission?: Yes Plan: Patient's CT scan of the abdomen said did not show any gallstones Patient is to drink alcohol during the holidays could be possible or could be viral with unclear etiology Will continues to IV fluid normal saline Continues the pain medications Keep her n.p.o. for the next 24 hours and start on the liquid diets Repeat the lipase (2) HLD (hyperlipidemia) Qualifiers: Hyperlipidemia type: unspecified Qualified Code(s): E78.5 - Hyperlipidemia, unspecified Is this a current diagnosis for this admission?: Yes (3) HTN (hypertension) Qualifiers: Hypertension type: essential hypertension Qualified Code(s): I10 - Essential (primary) hypertension Is this a current diagnosis for this admission?: Yes - Time Time Spent with patient: 15-24 minutes Medications reviewed and adjusted accordingly: Yes Anticipated discharge: Home - Plan Summary Plan Summary: cont curr med
[2018-10-05] MEDS: AMLODIPINE BESYLATE 5 MG TABLET PO SCH (09:37)
[2018-10-05] MEDS: NORMAL SALINE 1000 ML 1,000 ML IV PRN ×2 (09:37→17:18)
[2018-10-05] MEDS: DOCUSATE SODIUM 100 MG CAPSULE PO SCH ×2 (09:37→17:20)
[2018-10-05] MEDS: CEFEPIME 1 GM/D5W RTU 1 GM/50 ML RTUPB IV SCH ×2 (10:28→22:08)
--- NOTE | 2018-10-05 14:48 | RADIOLOGY REPORT (SQ) ---
EXAM DESCRIPTION: U/S ABDOMEN LIMITED W/O DOP COMPLETED DATE/TIME: 10/05/2018 2:35 pm REASON FOR STUDY: Pancreatitis COMPARISON: None. TECHNIQUE: Dynamic and static grayscale images acquired of the abdomen and recorded on PACS. Additio nal selected color Doppler and spectral images recorded. LIMITATIONS: None. FINDINGS: PANCREAS: Not well seen. Pancreatic head appears normal. LIVER: No masses. Echotexture normal. LIVER VASCULATURE: Normal directional flow of the main portal vein and hepatic veins. GALLBLADDER: There is some gallbladder sludge. No stones. No wall thickening. No pericholecystic f luid. ULTRASOUND-DETECTED BANERJEE'S SIGN: Negative. INTRAHEPATIC DUCTS AND COMMON DUCT: Common bile duct is borderline at 6.7 mm. There is no intrahepat ic ductal dilatation. INFERIOR VENA CAVA: Not imaged. AORTA: No aneurysm. RIGHT KIDNEY: Normal size, 9.4 cm. Normal echogenicity. No solid or suspicious masses. No hydronephr osis. No calcifications. PERITONEAL AND RIGHT PLEURAL SPACE: Trace right pleural effusion. OTHER: No other significant findings. IMPRESSION: Pancreas is not well seen. There is some gallbladder sludge but no gallstones. The com mon bile duct is borderline at 6.7 mm. TECHNICAL DOCUMENTATION: JOB ID: [id number] [employer]- All Rights Reserved Reading location - IP/workstation name: [email or web address]
[2018-10-05] MEDS ORDERED: DIPHENHYDRAMINE HCL 25 MG/10 ML UDC PO PRN (16:52)
[2018-10-05] MEDS: ZOLPIDEM TARTRATE 5 MG TABLET PO PRN (22:07)
[2018-10-06] MEDS: NORMAL SALINE 1000 ML 1,000 ML IV PRN ×3 (03:15→22:02)
[2018-10-06] MEDS: HEPARIN SOD (PORCINE) 5,000 UNIT/ML 1 ML SYRINGE SUBCUT SCH ×3 (05:11→21:26)
[2018-10-06 05:58] LABS: ABSOLUTE LYMPHOCYTES (AUTO) 1.2 10^3/uL (0.5-4.7); ABSOLUTE MONOCYTES (AUTO) 0.7 10^3/uL (0.1-1.4); ABSOLUTE NEUT (AUTO) 7.7 10^3/uL (1.7-8.2); BASOPHILS % (AUTO) 0.4 % (0-2); EOSINOPHILS % (AUTO) 0.3 % (0-6); HEMATOCRIT 34.3 % (36.0-47.0); HEMOGLOBIN 11.5 g/dL (12.0-15.5); LYMPHOCYTES % (AUTO) 12.1 % (13-45); MEAN CORPUSCULAR HEMOGLOBIN 32.5 pg (27.0-33.4); MEAN CORPUSCULAR HGB CONC 33.6 g/dL (32.0-36.0); MEAN CORPUSCULAR VOLUME 97 fl (80-97); MONOCYTES % (AUTO) 7.4 % (3-13); PLATELET COUNT 169 10^3/uL (150-450); RED BLOOD COUNT 3.55 10^6/uL (3.72-5.28); RED CELL DISTRIBUTION WIDTH 13.3 % (11.5-14.0); SEGMENTED NEUTROPHILS % (AUTO) 79.8 % (42-78); TOTAL CELLS COUNTED % (AUTO) 100 %; WHITE BLOOD COUNT 9.6 10^3/uL (4.0-10.5)
[2018-10-06 06:24] LABS: ALANINE AMINOTRANSFERASE 38 U/L (9-52); ALBUMIN 3.1 g/dL (3.5-5.0); ALKALINE PHOSPHATASE 78 U/L (38-126); AMYLASE 492 U/L (30-110); ANION GAP 6 (5-19); ASPARTATE AMINO TRANSFERASE 31 U/L (14-36); BILIRUBIN,DIRECT 0.3 mg/dL (0.0-0.4); BILIRUBIN,TOTAL 0.6 mg/dL (0.2-1.3); BLOOD UREA NITROGEN 8 mg/dL (7-20); CALCIUM 8.2 mg/dL (8.4-10.2); CARBON DIOXIDE 25 mmol/L (22-30); CHLORIDE 109 mmol/L (98-107); GLUCOSE 77 mg/dL (75-110); LIPASE 1686.2 U/L (23-300); POTASSIUM 3.9 mmol/L (3.6-5.0); SODIUM 139.5 mmol/L (137-145); TOTAL PROTEIN 5.6 g/dL (6.3-8.2)
[2018-10-06] MEDS: DOCUSATE SODIUM 100 MG CAPSULE PO SCH ×2 (09:27→17:43)
[2018-10-06] MEDS: AMLODIPINE BESYLATE 5 MG TABLET PO SCH (09:27)
[2018-10-06] MEDS: LIPASE/PROTEASE/AMYLASE 1 CAP CAPSULE.DR PO SCH ×3 (09:27→16:51)
[2018-10-06] MEDS: METOCLOPRAMIDE HCL 10 MG TABLET PO SCH ×4 (09:27→21:25)
[2018-10-06] MEDS: FAMOTIDINE 20 MG TABLET PO SCH ×4 (09:27→21:25)
[2018-10-06] MEDS: SUCRALFATE SUSP 1 GM/10 ML UDCUP PO SCH ×4 (09:27→21:25)
[2018-10-06] MEDS: CEFEPIME 1 GM/D5W RTU 1 GM/50 ML RTUPB IV SCH ×2 (09:28→21:25)
--- NOTE | 2018-10-06 16:51 | PDOC PROGRESS REPORT ---
Subjective Progress Note for:: 10/06/18 Subjective:: Patient was seen by the bedside, she was admitted for the management of acute pancreatitis Reason For Visit: ACUTE PANCREATITIS Physical Exam Vital Signs: Temp Pulse Resp BP Pulse Ox 98.9 F 81 17 135/62 H 93 10/06/18 16:03 10/06/18 16:03 10/06/18 16:03 10/06/18 16:03 10/06/18 16:03 Intake & Output 10/05/18 10/06/18 10/07/18 06:59 06:59 06:59 Intake Total 1999 4850 1336 Output Total 400 700 Balance 1999 4450 636 Weight 79.3 kg 81.2 kg General appearance: PRESENT: no acute distress Head exam: PRESENT: atraumatic, normocephalic Eye exam: PRESENT: PERRLA Mouth exam: PRESENT: moist, tongue midline Neck exam: PRESENT: full ROM Respiratory exam: PRESENT: clear to auscultation rohini Cardiovascular exam: PRESENT: RRR, +S1, +S2 Pulses: PRESENT: normal dorsalis pedis pul, +2 pedal pulses bilateral Vascular exam: PRESENT: normal capillary refill GI/Abdominal exam: PRESENT: normal bowel sounds, soft Rectal exam: PRESENT: deferred Neurological exam: PRESENT: alert, CN II-XII grossly intact Skin exam: PRESENT: dry, intact, warm Results Laboratory Results: 10/06/18 05:21 10/06/18 05:21 10/06/18 10/06/18 05:21 05:21 WBC 9.6 RBC 3.55 L Hgb 11.5 L Hct 34.3 L MCV 97 MCH 32.5 MCHC 33.6 RDW 13.3 Plt Count 169 Seg Neutrophils % 79.8 H Lymphocytes % 12.1 L Monocytes % 7.4 Eosinophils % 0.3 Basophils % 0.4 Absolute Neutrophils 7.7 Absolute Lymphocytes 1.2 Absolute Monocytes 0.7 Absolute Eosinophils 0.0 Absolute Basophils 0.0 Sodium 139.5 Potassium 3.9 Chloride 109 H Carbon Dioxide 25 Anion Gap 6 BUN 8 Creatinine 0.68 Est GFR ( Amer) > 60 Est GFR (Non-Af Amer) > 60 Glucose 77 Calcium 8.2 L Magnesium 1.9 Total Bilirubin 0.6 AST 31 ALT 38 Alkaline Phosphatase 78 Total Protein 5.6 L Albumin 3.1 L Amylase 492 H Lipase 1686.2 H Impressions: Abdomen/Pelvis CT 10/04/18 19:56 IMPRESSION: Acute pancreatitis. Peripancreatic fluid as described. Abdomen Ultrasound 10/05/18 00:00 IMPRESSION: Pancreas is not well seen. There is some gallbladder sludge but no gallstones. The common bile duct is borderline at 6.7 mm. Assessment & Plan - Diagnosis (1) Acute pancreatitis Qualifiers: Pancreatitis type: unspecified pancreatitis type Acute pancreatitis complication: unspecified Qualified Code(s): K85.90 - Acute pancreatitis without necrosis or infection, unspecified Is this a current diagnosis for this admission?: Yes Plan: She is no longer vomiting, cool advance diet to regular diet as tolerated
[2018-10-06] MEDS ORDERED: CYCLOBENZAPRINE HCL 10 MG TABLET PO PRN (18:00)
[2018-10-06] MEDS: MORPHINE SULFATE 10 MG/ML INJ IV PRN (19:40)
[2018-10-06] MEDS: ZOLPIDEM TARTRATE 5 MG TABLET PO PRN (21:31)
[2018-10-07] MEDS: HEPARIN SOD (PORCINE) 5,000 UNIT/ML 1 ML SYRINGE SUBCUT SCH ×3 (05:08→21:12)
[2018-10-07] MEDS: MORPHINE SULFATE 10 MG/ML INJ IV PRN ×2 (05:46→15:16)
[2018-10-07 08:33] LABS: ABSOLUTE BASOPHILS # (AUTO) 0.1 10^3/uL (0.0-0.2); ABSOLUTE MONOCYTES (AUTO) 0.7 10^3/uL (0.1-1.4); BASOPHILS % (AUTO) 0.7 % (0-2); MEAN CORPUSCULAR HGB CONC 34.4 g/dL (32.0-36.0); TOTAL CELLS COUNTED % (AUTO) 100 %
[2018-10-07 08:47] LABS: MEAN CORPUSCULAR HEMOGLOBIN 32.3 pg (27.0-33.4); MEAN CORPUSCULAR VOLUME 94 fl (80-97); PLATELET COUNT 168 10^3/uL (150-450); RED BLOOD COUNT 3.73 10^6/uL (3.72-5.28); RED CELL DISTRIBUTION WIDTH 13.1 % (11.5-14.0); SEGMENTED NEUTROPHILS % (AUTO) 68.9 % (42-78); WHITE BLOOD COUNT 8.1 10^3/uL (4.0-10.5)
[2018-10-07 08:48] LABS: ABSOLUTE EOSINOPHILS # (AUTO) 0.2 10^3/uL (0.0-0.6); ABSOLUTE LYMPHOCYTES (AUTO) 1.6 10^3/uL (0.5-4.7); ABSOLUTE NEUT (AUTO) 5.6 10^3/uL (1.7-8.2); AMYLASE 106 U/L (30-110); ANION GAP 9 (5-19); BLOOD UREA NITROGEN 5 mg/dL (7-20); CALCIUM 8.4 mg/dL (8.4-10.2); CARBON DIOXIDE 23 mmol/L (22-30); CHLORIDE 108 mmol/L (98-107); EOSINOPHILS % (AUTO) 2.7 % (0-6); GLUCOSE 104 mg/dL (75-110); LIPASE 203.6 U/L (23-300); LYMPHOCYTES % (AUTO) 19.3 % (13-45); MONOCYTES % (AUTO) 8.4 % (3-13); POTASSIUM 3.4 mmol/L (3.6-5.0); SODIUM 139.5 mmol/L (137-145)
[2018-10-07] MEDS: AMLODIPINE BESYLATE 5 MG TABLET PO SCH (09:54)
[2018-10-07] MEDS: SUCRALFATE SUSP 1 GM/10 ML UDCUP PO SCH ×4 (09:54→21:12)
[2018-10-07] MEDS: METOCLOPRAMIDE HCL 10 MG TABLET PO SCH ×4 (09:55→21:12)
[2018-10-07] MEDS: FAMOTIDINE 20 MG TABLET PO SCH ×4 (09:55→21:12)
[2018-10-07] MEDS: CEFEPIME 1 GM/D5W RTU 1 GM/50 ML RTUPB IV SCH ×2 (09:55→21:18)
[2018-10-07] MEDS: LIPASE/PROTEASE/AMYLASE 1 CAP CAPSULE.DR PO SCH ×3 (09:55→17:41)
[2018-10-07] MEDS: DOCUSATE SODIUM 100 MG CAPSULE PO SCH ×2 (09:55→17:41)
[2018-10-07] MEDS: ACETAMINOPHEN 325 MG TABLET PO PRN (12:04)
[2018-10-07] MEDS: NORMAL SALINE 1000 ML 1,000 ML IV PRN (13:28)
--- NOTE | 2018-10-07 14:43 | PDOC PROGRESS REPORT ---
Subjective Progress Note for:: 10/07/18 Subjective:: Patient seen by the bedside still has residual abdominal pain but overall improving Reason For Visit: ACUTE PANCREATITIS Physical Exam Vital Signs: Temp Pulse Resp BP Pulse Ox 98.2 F 80 16 141/62 H 95 10/07/18 12:19 10/07/18 12:19 10/07/18 12:19 10/07/18 12:19 10/07/18 12:19 Intake & Output 10/06/18 10/07/18 10/08/18 06:59 06:59 06:59 Intake Total 4850 3736 286 Output Total 400 4200 1200 Balance 6941 -852 -947 Weight 81.2 kg 65.6 kg General appearance: PRESENT: no acute distress Eye exam: PRESENT: PERRLA Respiratory exam: PRESENT: clear to auscultation rohini Cardiovascular exam: PRESENT: +S1, +S2 GI/Abdominal exam: PRESENT: soft Neurological exam: PRESENT: alert Results Laboratory Results: 10/07/18 08:08 10/07/18 08:08 10/07/18 10/07/18 08:08 08:08 WBC 8.1 RBC 3.73 Hgb 12.0 Hct 35.0 L MCV 94 MCH 32.3 MCHC 34.4 RDW 13.1 Plt Count 168 Seg Neutrophils % 68.9 Lymphocytes % 19.3 Monocytes % 8.4 Eosinophils % 2.7 Basophils % 0.7 Absolute Neutrophils 5.6 Absolute Lymphocytes 1.6 Absolute Monocytes 0.7 Absolute Eosinophils 0.2 Absolute Basophils 0.1 Sodium 139.5 Potassium 3.4 L Chloride 108 H Carbon Dioxide 23 Anion Gap 9 BUN 5 L Creatinine 0.57 Est GFR ( Amer) > 60 Est GFR (Non-Af Amer) > 60 Glucose 104 Calcium 8.4 Magnesium 2.0 Amylase 106 Lipase 203.6 Impressions: Abdomen/Pelvis CT 10/04/18 19:56 IMPRESSION: Acute pancreatitis. Peripancreatic fluid as described. Abdomen Ultrasound 10/05/18 00:00 IMPRESSION: Pancreas is not well seen. There is some gallbladder sludge but no gallstones. The common bile duct is borderline at 6.7 mm. Assessment & Plan - Diagnosis (1) Acute pancreatitis Qualifiers: Pancreatitis type: unspecified pancreatitis type Acute pancreatitis complication: unspecified Qualified Code(s): K85.90 - Acute pancreatitis without necrosis or infection, unspecified Is this a current diagnosis for this admission?: Yes Plan: Advance diet as tolerated
[2018-10-07] MEDS: ZOLPIDEM TARTRATE 5 MG TABLET PO PRN (21:18)
[2018-10-08] MEDS: HEPARIN SOD (PORCINE) 5,000 UNIT/ML 1 ML SYRINGE SUBCUT SCH (05:27)
[2018-10-08 09:00] VITALS: BP 145/64
[2018-10-08 09:27] LABS: ANION GAP 9 (5-19); BLOOD UREA NITROGEN 5 mg/dL (7-20); CALCIUM 8.8 mg/dL (8.4-10.2); CARBON DIOXIDE 23 mmol/L (22-30); CHLORIDE 108 mmol/L (98-107); GLUCOSE 108 mg/dL (75-110); LIPASE 114.9 U/L (23-300); POTASSIUM 3.5 mmol/L (3.6-5.0); SODIUM 140.2 mmol/L (137-145)
[2018-10-08] MEDS: FAMOTIDINE 20 MG TABLET PO SCH ×2 (09:33→11:04)
[2018-10-08] MEDS: DOCUSATE SODIUM 100 MG CAPSULE PO SCH (09:33)
[2018-10-08] MEDS: METOCLOPRAMIDE HCL 10 MG TABLET PO SCH ×2 (09:33→11:04)
[2018-10-08] MEDS: AMLODIPINE BESYLATE 5 MG TABLET PO SCH (09:33)
[2018-10-08] MEDS: SUCRALFATE SUSP 1 GM/10 ML UDCUP PO SCH ×2 (09:33→11:04)
[2018-10-08] MEDS: LIPASE/PROTEASE/AMYLASE 1 CAP CAPSULE.DR PO SCH ×2 (09:33→11:04)
[2018-10-08] MEDS: CEFEPIME 1 GM/D5W RTU 1 GM/50 ML RTUPB IV SCH (11:04)
[2018-10-08] MEDS ORDERED: ONDANSETRON HCL INJ/PF 4 MG/2 ML SDV IV PRN (12:30)
[2018-10-08] MEDS ORDERED: ONDANSETRON 4 MG TAB.RAPDIS PO PRN (12:30)
[2018-10-08] MEDS ORDERED: POTASSIUM CHLORIDE 10 MEQ CAPSULE.ER PO ONE ×2 (12:48→13:00)
--- NOTE | 2018-10-08 13:40 | PDOC DISCHARGE SUMMARY ---
General - Admit/Disc Date/PCP Admission Date/Primary Care Provider: 10/04/18 21:19 LETHA DE LOS SANTOS MD Discharge Date: 10/08/18 - Discharge Diagnosis (1) Acute pancreatitis Is this a current diagnosis for this admission?: Yes Summary: Currently all resolved with not clear etiology but patients tolerate the p.o. intake well and lipase is all normal (2) HLD (hyperlipidemia) Is this a current diagnosis for this admission?: Yes Summary: Is a current medications (3) HTN (hypertension) Is this a current diagnosis for this admission?: Yes Summary: Currently all stable - Additional Information Resuscitation Status: Full Code Discharge Diet: As Tolerated, Cardiac Discharge Activity: Activity As Tolerated Home Medications: Amlodipine Besylate [Norvasc 5 mg Tablet] 5 mg PO DAILY 10/04/18 Cyclobenzaprine HCl [Flexeril 5 mg Tablet] 5 mg PO HSP PRN 10/04/18 Lovastatin [Mevacor] 10 mg PO DAILY 10/04/18 Zolpidem Tartrate [Ambien 5 mg Tablet] 5 mg PO HSP PRN 10/04/18 History of Present Illness History of Present Illness: JAJA MENDOZA is a 68 year old female Patient was admitting in the hospital for an acute abdominal pain and CT abdomen and pelvis with IV contrast suggest the pancreatitis and treated with the IV fluid Likely pancreatitis with recent use of alcohol with some hyperlipidemia but no sign of any gallstone Hospital Course Hospital Course: This is a 68-year-old female admitting in the hospital acute pancreatitis fall not very clear etiology with the recent use of the alcohol but not abuse but no gallstone Patient was treated with the IV fluid Patient start on a clear liquid to the advance regular diet Patient's ultrasound of the abdomen was all stable Patients respond well to the treatments and able to walk in the hallway without any problems The p.o. intake is all good without any issues Patient is denied nausea no vomiting no abdominal pain Patient's all blood work is stable Patient's a discharge home with a stable condition and diet following the 3 4 days in office will further evaluate for the pancreatitis Physical Exam Vital Signs: Temp Pulse Resp BP Pulse Ox 98.4 F 74 16 145/64 H 95 10/08/18 12:40 10/08/18 12:40 10/08/18 12:40 10/08/18 08:12 10/08/18 12:40 Intake & Output 10/07/18 10/08/18 10/09/18 06:59 06:59 06:59 Intake Total 3736 786 1050 Output Total 4200 5600 Balance -464 -6059 1050 Weight 65.6 kg 66 kg General appearance: PRESENT: no acute distress, well-developed, well-nourished Head exam: PRESENT: atraumatic, normocephalic Eye exam: PRESENT: conjunctiva pink, EOMI, PERRLA. ABSENT: scleral icterus Ear exam: PRESENT: normal external ear exam Mouth exam: PRESENT: moist, tongue midline Neck exam: PRESENT: full ROM. ABSENT: carotid bruit, JVD, lymphadenopathy, thyromegaly Respiratory exam: PRESENT: clear to auscultation rohini Cardiovascular exam: PRESENT: RRR. ABSENT: diastolic murmur, rubs, systolic murmur Pulses: PRESENT: normal dorsalis pedis pul, +2 pedal pulses bilateral Vascular exam: PRESENT: normal capillary refill GI/Abdominal exam: PRESENT: normal bowel sounds, soft. ABSENT: distended, guarding, mass, organolmegaly, rebound, tenderness Rectal exam: PRESENT: deferred Extremities exam: ABSENT: pedal edema Musculoskeletal exam: PRESENT: ambulatory Neurological exam: PRESENT: alert, awake, oriented to person, oriented to place, oriented to time, oriented to situation, CN II-XII grossly intact. ABSENT: motor sensory deficit Psychiatric exam: PRESENT: appropriate affect, normal mood. ABSENT: homicidal ideation, suicidal ideation Skin exam: PRESENT: dry, intact, warm. ABSENT: cyanosis, rash Results Laboratory Results: 10/07/18 08:08 10/08/18 08:47 10/08/18 08:47 Sodium 140.2 Potassium 3.5 L Chloride 108 H Carbon Dioxide 23 Anion Gap 9 BUN 5 L Creatinine 0.52 Est GFR ( Amer) > 60 Est GFR (Non-Af Amer) > 60 Glucose 108 Calcium 8.8 Lipase 114.9 Impressions: Abdomen/Pelvis CT 10/04/18 19:56 IMPRESSION: Acute pancreatitis. Peripancreatic fluid as described. Abdomen Ultrasound 10/05/18 00:00 IMPRESSION: Pancreas is not well seen. There is some gallbladder sludge but no gallstones. The common bile duct is borderline at 6.7 mm. Qualifiers - * PATIENT BEING DISCHARGED WITH ANY OF THE FOLLOWING DIAGNOSIS: No VTE patient discharged on overlapping Therapy?: Yes Plan Time Spent: Greater than 30 Minutes - Continues to current medications Soft diet Follow-up outpatient in 1 week Referred to GI
== END 2018-10-08 13:16 | disposition home or self-care (01) | DRG 440 ==
LOC: ER 18:09 → EH 21:19 → 3W 10-05 01:35
PROVIDERS: ADMIT Family Medicine; ATTEND Family Medicine
DX: K85.90 Acute pancreatitis without necrosis or infection, unspecified (principal); E78.5 Hyperlipidemia, unspecified; I10 Essential (primary) hypertension
CPT/HCPCS: 36415; 74177; 76705; 80048; 80053; 80061; 80076; 80307; 81001; 82150; 82962; 83036; 83690; 83735; 84439; 84443; 84481; 85025; 96374; 96375; 99285; J0692; J1644; J1885; J2270; J2405; J3010; J3490; J7030; J7120; S0119; S0164

== ENCOUNTER → 2020-06-04 | Outpatient (CLI) | payer MEDICARE ==
--- NOTE | 2020-06-04 12:25 | RADIOLOGY REPORT (SQ) ---
EXAM DESCRIPTION: L SPINE WHOLE IMAGES COMPLETED DATE/TIME: 06/04/2020 8:30 am REASON FOR STUDY: M54.10 RADICULOPATHY, SITE UNSPECIFIED M54.10 RADICULOPATHY, SITE UNSPECIFIED COMPARISON: None. NUMBER OF VIEWS: Five views including obliques. TECHNIQUE: AP, lateral, oblique, and sacral radiographic images acquired of the lumbar spine. LIMITATIONS: None. FINDINGS: MINERALIZATION: Normal. SEGMENTATION: Normal. No transitional anatomy. ALIGNMENT: Mild dextroscoliosis in the upper lumbar spine. VERTEBRAE: Maintained height. No fracture or worrisome bone lesion. DISCS: There is disc narrowing from L1-L3 and from L4-S1. Small marginal osteophytes are present. POSTERIOR ELEMENTS: Pedicles and facets are intact. No pars defect or posterior arch defects. HARDWARE: None in the spine. PARASPINAL SOFT TISSUES: Normal. PELVIS: Intact as visualized. No fractures or worrisome bone lesions. SI joints intact. OTHER: No other significant finding. IMPRESSION: Mild scoliosis. Degenerative disc disease and spondylosis. TECHNICAL DOCUMENTATION: JOB ID: [id number] [employer]- All Rights Reserved Reading location - IP/workstation name: [email or web address]
== END ==
LOC: RAD 08:12
PROVIDERS: ATTEND Family Medicine
DX: M54.10 Radiculopathy, site unspecified (principal)
CPT/HCPCS: 72110